=== PATIENT | female | born 1925 ===

== ENCOUNTER 2017-05-18 22:38 | Observation (INO) | payer OTHER ==
[2017-05-18 22:38] VITALS: BMI 23.4
--- NOTE | 2017-05-18 23:03 | ED PDOC ---
Arrival/HPI - General Time Seen by Provider: 05/18/17 22:48 Historian: Patient - History of Present Illness Narrative History of Present Illness (Text): 05/18/17 23:00 Ewa Escobar is an 89 year old female, whose past medical history includes hiatal hernia, CHF, hypertension, heart valve replacement, gastritis, and anemia, who presents to the Emergency department accompanied by daughter complaining of generalized weakness today. Daughter states patient has been experiencing generalized weakness with vague abdominal discomfort, shortness of breath, and possible episode of vomiting and diarrhea. Daughter also reports patient has decreased appetite. Patient on morphine patch for chronic back pain. Patient denies any fever, chills, chest pain, urinary symptoms, back pain , neck pain, headache, dizziness, or any other complaints. Time/Duration: Other (today) Symptom Onset: Gradual Symptom Course: Unchanged Activities at Onset: Light Context: Home Past Medical History - Provider Review Nursing Documentation Reviewed: Yes - Infectious Disease Hx of Infectious Diseases: None - Tetanus Immunization Tetanus Immunization: Unknown - Cardiac Hx Cardiac Disorders: Yes Hx Congestive Heart Failure: Yes Hx Hypertension: Yes - Pulmonary Hx Respiratory Disorders: No - Neurological Other/Comment: The patient has a history of facial asymmetry due to chronic pain on the right side which she takes Lyrica. - HEENT Hx HEENT Disorder: Yes (damaged retina, patient needs surgery) - Renal Hx Renal Disorder: No - Endocrine/Metabolic Hx Endocrine Disorders: No - Hematological/Oncological Hx Blood Disorders: Yes Hx Anemia: Yes (blood transfusion) - Integumentary Hx Dermatological Disorder: Yes (superficial skin cancer to face) - Musculoskeletal/Rheumatological Hx Musculoskeletal Disorders: No Hx Falls: No - Gastrointestinal Hx Gastrointestinal Disorders: No - Genitourinary/Gynecological Hx Genitourinary Disorders: Yes (urinary frequency) - Psychiatric Hx Psychophysiologic Disorder: Yes Hx Anxiety: Yes Hx Depression: Yes Hx Emotional Abuse: No Hx Physical Abuse: No Hx Substance Use: No - Past Surgical History Past Surgical History: No Previous - Surgical History Hx Valve Replacement: Yes - Anesthesia Hx Anesthesia: Yes Hx Anesthesia Reactions: No Hx Malignant Hyperthermia: No - Suicidal Assessment Feels Threatened In Home Enviroment: No Family/Social History - Physician Review Nursing Documentation Reviewed: Yes Family/Social History: Unknown Family HX Smoking Status: Never Smoked Hx Alcohol Use: No Hx Substance Use: No Hx Substance Use Treatment: No Allergies/Home Meds Allergies/Adverse Reactions: Allergies No Known Allergies Allergy (Verified 05/18/17 23:32) Home Medications: Home Meds Medication Instructions Recorded Confirmed Clopidogrel [Plavix] 1 tab PO DAILY 08/19/15 11/21/15 Esomeprazole Magnesium [Nexium] 40 mg PO DAILY 08/19/15 11/21/15 Folic Acid 1 mg PO DAILY 11/21/15 11/21/15 Diltiazem HCl [Diltiazem ER] 10/07/16 Review of Systems - Physician Review All systems were reviewed & negative as marked: Yes - Review of Systems Constitutional: Other (+generalized weakness) Eyes: Normal ENT: Normal Respiratory: SOB Cardiovascular: Normal Gastrointestinal: Abdominal Pain (+vague abdominal pain), Diarrhea, Vomiting, Appetite Changes (+decreased appetite) Genitourinary Female: Normal. absent: Dysuria, Frequency, Hematuria, Urine Output Changes Musculoskeletal: Other (+body aches). absent: Back Pain, Neck Pain Skin: Normal. absent: Rash Neurological: Normal Endocrine: Normal Hemo/Lymphatic: Normal Psychiatric: Normal Physical Exam Vital Signs Reviewed: Yes Vital Signs Temp Pulse Resp BP Pulse Ox 05/19/17 01:39 65 18 155/74 H 100 05/19/17 01:38 155/74 H 05/19/17 00:42 66 18 147/78 100 05/18/17 23:45 18 99 05/18/17 23:33 99.2 F 70 18 148/75 100 Temperature: Afebrile Blood Pressure: Normal Pulse: Regular Respiratory Rate: Normal Appearance: Positive for: Well-Appearing, Non-Toxic, Comfortable Pain Distress: None Mental Status: Positive for: Alert and Oriented X 3 - Systems Exam Head: Present: Atraumatic, Normocephalic Pupils: Present: PERRL Extroacular Muscles: Present: EOMI Conjunctiva: Present: Normal Mouth: Present: Moist Mucous Membranes Neck: Present: Normal Range of Motion Respiratory/Chest: Present: Clear to Auscultation, Good Air Exchange. No: Respiratory Distress, Accessory Muscle Use Cardiovascular: Present: Regular Rate and Rhythm, Normal S1, S2. No: Murmurs Abdomen: Present: Tenderness (Minimal epigastric tenderness), Normal Bowel Sounds. No: Distention, Peritoneal Signs Back: Present: Normal Inspection Upper Extremity: Present: Normal Inspection. No: Cyanosis, Edema Lower Extremity: Present: Normal Inspection. No: Edema Neurological: Present: GCS=15, CN II-XII Intact, Speech Normal Skin: Present: Warm, Dry, Normal Color. No: Rashes Psychiatric: Present: Alert, Oriented x 3, Normal Insight, Normal Concentration Medical Decision Making ED Course and Treatment: 05/18/17 23:00 Impression: 89 year old female presents for generalized weakness, abdominal discomfort, shortness of breath, and possible vomiting/diarrhea. Plan: -- CT Abdomen and Pelvis w/o contrast -- EKG -- Chest X-ray -- Labs, cardiac enzymes, BNP, lipase -- Reassess and disposition Prior Visits: Notes and results from previous visits were reviewed. On 10/07/2016, pt was seen in the Emergency department for lower back pain. Pt was d/c home. Progress Notes: Reviewed EKG, NSR at [address]pm[address] LVH. Non-specific ST/T wave changes. 05/19/17 00:54 Reviewed radiology, CT Abdomen and Pelvis shows: Lower thorax: Trace bilateral pleural effusions, with adjacent compressive atelectasis. ABDOMEN: Liver: No acute findings Gallbladder and bile ducts: The gallbladder is distended, without calcified stones. No intraextrahepatic biliary ductal dilation. Pancreas: Limited evaluation secondary to the lack of intravenous contrast. Spleen: No acute findings. Adrenals: No acute findings. Kidneys and ureters: No obstructing stones. No hydronephrosis. Stable bilateral foci of decreased attenuation, statistically cysts. PELVIS: Bladder: No acute findings. Reproductive: A 3.8 cm focus of decreased attenuation is identified within the left adnexa, most consistent with a left ovarian cyst. Appendix: The appendix is of normal caliber (series 2, image 109) ABDOMEN and PELVIS: Stomach and bowel: No acute findings. Peritoneum: No acute findings. Lymph nodes: Limited evaluation without intravenous contrast. Vasculature: Calcified atherosclerotic disease. Bones: Diffuse bony demineralization, without acute fracture. IMPRESSION: 3.8 cm left adnexal cyst, an interval change from previous examination. 05/19/17 01:[address] Garcia, lead medical technologist data processing consultant, who is aware and agrees with plan. Case discussed with Dr. Wise, who is aware and agrees with plan. Accepts pt in to hospitalist service. Pt will go to Telemetry observation for CHF. - Lab Interpretations Lab Results: 05/18/17 23:50 05/18/17 23:50 Lab Results 05/18/17 23:50: WBC 6.6, RBC 3.52, Hgb 10.0 L, Hct 30.6 L, MCV 86.9, MCH 28.4, MCHC 32.7, RDW 14.7 H, Plt Count 216, MPV 9.5 05/18/17 23:50: Sodium 137, Potassium 4.0, Chloride 102, Carbon Dioxide 27, Anion Gap 12, BUN 18, Creatinine 0.9, Est GFR ( Amer) > 60, Est GFR (Non- Af Amer) 59, Random Glucose 134 H, Calcium 8.5, Total Bilirubin 0.4, AST 41 H, ALT 25, Alkaline Phosphatase 98, Lactate Dehydrogenase 525, Total Creatine Kinase 60, Troponin I 0.03 D, NT-Pro-B Natriuret Pep 760 H, Total Protein 7.1, Albumin 3.7, Globulin 3.5, Albumin/Globulin Ratio 1.1, Lipase 43 05/18/17 23:50: PT 11.5, INR 1.06, APTT 27.5 I have reviewed the lab results: Yes - RAD Interpretation Radiology Orders: 05/18/17 23:10 CHEST PORTABLE [RAD] Stat 05/18/17 23:11 ABD & PELVIS W/O PO OR IV CONT [CT] Stat - EKG Interpretation Interpreted by ED Physician: Yes Type: 12 lead EKG - Medication Orders Current Medication Orders: Discontinued Medications Furosemide (Lasix) 40 mg IVP ONCE ONE Stop: 05/19/17 01:02 Last Admin: 05/19/17 01:38 Dose: 40 mg MAR Blood Pressure Document 05/19/17 01:38 JOSE (Rec: 05/19/17 01:38 [facility] [id number]) Blood Pressure Blood Pressure (100/60-150/90 mm Hg) 155/74 IVP Administration Document 05/19/17 01:38 JOSE (Rec: 05/19/17 01:38 [facility] [id number]) Charges for Administration # of IVP Administrations 1 - Scribe Statement The provider has reviewed the documentation as recorded by the Scribe Moira Mujica All medical record entries made by the Scribe were at my direction and personally dictated by me. I have reviewed the chart and agree that the record accurately reflects my personal performance of the history, physical exam, medical decision making, and the department course for this patient. I have also personally directed, reviewed, and agree with the discharge instructions and disposition. Disposition/Present on Arrival - Present on Arrival Any Indicators Present on Arrival: No History of DVT/PE: No History of Uncontrolled Diabetes: No Urinary Catheter: No History of Decub. Ulcer: No History Surgical Site Infection Following: None - Disposition Have Diagnosis and Disposition been Completed?: Yes Diagnosis: Congestive heart failure Disposition: HOSPITALIZED Disposition Time: 01:18 Patient Plan: Observation Patient Problems: Current Active Problems Problem Status Onset Congestive heart failure Acute Condition: STABLE
[2017-05-19 00:10] LABS: INR 1.06 (0.93-1.08); PARTIAL THROMBOPLASTIN TIME 27.5 Seconds (23.7-30.8)
[2017-05-19 00:12] LABS: HEMATOCRIT 30.6 % (36.0-48.0); MEAN CELL VOLUME 86.9 fl (80.0-105.0); MEAN CORPUSCULAR HEMOGLOBIN 28.4 pg (25.0-35.0); MEAN CORPUSCULAR HGB CONC 32.7 g/dl (31.0-37.0); MEAN PLATELET VOLUME 9.5 fl (7.0-11.0); RED CELL DISTRIBUTION WIDTH 14.7 % (11.5-14.5); WHITE BLOOD COUNT 6.6 10^3/ul (4.5-11.0)
[2017-05-19 00:13] LABS: ALB/GLOB RATIO 1.1 (1.1-1.8); ALKALINE PHOSPHATASE 98 U/L (38-126); ALT/SGPT 25 U/L (7-56); AST/SGOT 41 U/L (14-36); BILIRUBIN,TOTAL 0.4 mg/dL (0.2-1.3); BLOOD UREA NITROGEN 18 mg/dL (7-21); CALCIUM 8.5 mg/dL (8.4-10.5); CARBON DIOXIDE 27 mmol/L (21-33); CHLORIDE 102 mmol/L (98-107); GFR AFRICAN-AMERICAN > 60; GLUCOSE,RANDOM 134 mg/dL (70-110); LIPASE 43 U/L (23-300); SODIUM 137 mmol/L (132-148); TOTAL PROTEIN 7.1 g/dL (5.8-8.3)
[2017-05-19 00:27] LABS: TROPONIN I 0.03 ng/mL
--- NOTE | 2017-05-19 00:53 | CT ---
EXAM: CT Abdomen and Pelvis Without Intravenous Contrast CLINICAL HISTORY: 89 years old, female; Pain; Abdominal pain; Generalized TECHNIQUE: Axial computed tomography images of the abdomen and pelvis without intravenous contrast. All CT scans at this facility use one or more dose reduction techniques, viz.: automated exposure control; ma/kV adjustment per patient size (including targeted exams where dose is matched to indication; i.e. head); or iterative reconstruction technique. Coronal and sagittal reformatted images were created and reviewed. COMPARISON: CT - ABD PELVIS W/O PO OR IV CONT 11/21/2015 11:15:07 AM FINDINGS: Lower thorax: Trace bilateral pleural effusions, with adjacent compressive atelectasis. ABDOMEN: Liver: No acute findings Gallbladder and bile ducts: The gallbladder is distended, without calcified stones. No intra-extrahepatic biliary ductal dilation. Pancreas: Limited evaluation secondary to the lack of intravenous contrast. Spleen: No acute findings. Adrenals: No acute findings. Kidneys and ureters: No obstructing stones. No hydronephrosis. Stable bilateral foci of decreased attenuation, statistically cysts. PELVIS: Bladder: No acute findings. Reproductive: A 3.8 cm focus of decreased attenuation is identified within the left adnexa, most consistent with a left ovarian cyst. Appendix: The appendix is of normal caliber (series 2, image 109) ABDOMEN and PELVIS: Stomach and bowel: No acute findings. Peritoneum: No acute findings. Lymph nodes: Limited evaluation without intravenous contrast. Vasculature: Calcified atherosclerotic disease. Bones: Diffuse bony demineralization, without acute fracture. IMPRESSION: 3.8 cm left adnexal cyst, an interval change from previous examination.
--- NOTE | 2017-05-19 02:15 | CP.PCM.HP ---
<Ti Mann - Last Filed: 05/19/17 20:14> History of Present Illness - History of Present Illness History of Present Illness: 89 year old female, whose past medical history includes HTN, Aortic heart valve replacement, chronic back pain, gastritis, and anemia, presents complaining of generalized weakness and abdominal pain which is diffuse and SOB. The patient states she has had the abdominal pain for several days. Her daughter is bedside and history is obtained through her. Daughter states the patient ate an egg omelette today then went to bed around 10 pm. The patient then woke up and told her daughter she was having issues breathing and felt short of breath. The daughter states her mother has been eating less recently and has not been herself since returning from a trip to [place] a month ago. While in [place], her mother was given pain patches for back pain. Patient has morphine patch for chronic back pain. Patient denies any chest pain, fever, chills, urinary symptoms, back pain, neck pain, headache, dizziness, or any other complaints. PMH: HTN, Aortic heart valve replacement, gastritis, chronic back pain and anemia, EF of 56 (October 2015) PSH: Aortic Valve replacement 3 years ago Allergies: NKDA Social: lives with daughter, denies tobacco, alcohol, or drug use Family Hx: none significant Medications: Nexium, Diltiazem, Clopidogrel, Folic acid, B12, benadryl Present on Admission - Present on Admission Any Indicators Present on Admission: No Review of Systems - Constitutional Constitutional: absent: Headache - EENT Eyes: absent: Change in Vision Ears: Ear Pain - Cardiovascular Cardiovascular: Dyspnea. absent: Chest Pain - Respiratory Respiratory: Dyspnea. absent: Cough - Gastrointestinal Gastrointestinal: Abdominal Pain. absent: Diarrhea, Nausea, Vomiting - Musculoskeletal Musculoskeletal: Back Pain - Neurological Neurological: absent: Abnormal Hearing Past Patient History - Infectious Disease Hx of Infectious Diseases: None - Tetanus Immunizations Tetanus Immunization: Unknown - Past Social History Smoking Status: Never Smoked - CARDIAC Hx Cardiac Disorders: Yes Hx Congestive Heart Failure: Yes Hx Hypertension: Yes - PULMONARY Hx Respiratory Disorders: No - NEUROLOGICAL Other/Comment: The patient has a history of facial asymmetry due to chronic pain on the right side which she takes Lyrica. - HEENT Hx HEENT Problems: Yes (damaged retina, patient needs surgery) - RENAL Hx Chronic Kidney Disease: No - ENDOCRINE/METABOLIC Hx Endocrine Disorders: No - HEMATOLOGICAL/ONCOLOGICAL Hx Blood Disorders: Yes Hx Anemia: Yes (blood transfusion) - INTEGUMENTARY Hx Dermatological Problems: Yes (superficial skin cancer to face) - MUSCULOSKELETAL/RHEUMATOLOGICAL Hx Musculoskeletal Disorders: No Hx Falls: No - GASTROINTESTINAL Hx Gastrointestinal Disorders: No - GENITOURINARY/GYNECOLOGICAL Hx Genitourinary Disorders: Yes (urinary frequency) - PSYCHIATRIC Hx Psychophysiologic Disorder: Yes Hx Anxiety: Yes Hx Depression: Yes Hx Emotional Abuse: No Hx Physical Abuse: No Hx Substance Use: No - SURGICAL HISTORY Hx Valve Replacement: Yes - ANESTHESIA Hx Anesthesia: Yes Hx Anesthesia Reactions: No Hx Malignant Hyperthermia: No Meds Allergies/Adverse Reactions: Allergies Allergy/AdvReac Type Severity Reaction Status Date / Time No Known Allergies Allergy Verified 05/18/17 23:32 Physical Exam - Constitutional Additional comments: Fatigued, tired - Head Exam Head Exam: ATRAUMATIC, NORMAL INSPECTION, NORMOCEPHALIC - Eye Exam Eye Exam: Normal appearance - Respiratory Exam Respiratory Exam: Clear to Auscultation Bilateral, NORMAL BREATHING PATTERN - Cardiovascular Exam Cardiovascular Exam: REGULAR RHYTHM, +S1, +S2, Systolic Murmur - GI/Abdominal Exam GI & Abdominal Exam: Normal Bowel Sounds, Tenderness. absent: Distended - Back Exam Back exam: rash noted - Neurological Exam Neurological exam: Alert, Oriented x3 Results - Vital Signs Recent Vital Signs: Last Vital Signs Temp 99.2 F 05/18/17 23:33 Pulse 65 05/19/17 01:39 Resp 18 05/19/17 01:39 BP 155/74 H 05/19/17 01:39 Pulse Ox 100 05/19/17 01:39 - Labs Result Diagrams: 05/19/17 06:30 05/19/17 06:30 Assessment & Plan - Assessment and Plan (Free Text) Assessment: 89 year old female, whose past medical history includes HTN, Aortic heart valve replacement, chronic back pain, gastritis, and anemia, presents complaining of generalized weakness and abdominal pain which is diffuse and SOB. The patient states she has had the abdominal pain for several days. She is being worked up for SOB and abdominal pain. Plan: 1. SOB Rule out ACS - EKG ordered and obtained non specific ST changes, serial EKGs ordered, pending official review - Troponins 0.03, serial ordered - Echo ordered - Cardiology Consulted 2. Abdominal Pain secondary to possible gastritis - Abd/ Pelvic CT ordered and obtained, thorax shows bilateral pleural effusions with compressive atelectasis and 3.8cm left adnexal cyst - Tylenol given - Stool occult blood test ordered 3. Weakness, secondary to anemia - Hg 10, monitor - Anemia workup ordered - repeat labs 4. HTN -continue home meds 5. GI/DVT Prophylaxis <Mihir Wise - Last Filed: 05/21/17 20:50> Results - Vital Signs Recent Vital Signs: Last Vital Signs Temp 97.8 F 05/20/17 05:35 Pulse 54 L 05/20/17 11:41 Resp 20 05/20/17 05:35 BP 129/60 05/20/17 09:47 Pulse Ox 97 05/20/17 05:35 - Labs Result Diagrams: 05/20/17 06:17 05/20/17 06:17 Attending/Attestation - Attestation I have personally seen and examined this patient.: Yes I have fully participated in the care of the patient.: Yes I have reviewed all pertinent clinical information: Yes Notes (Text): 05/21/17 20:50 Agree with history, physical examination, assessment and plan.
[2017-05-19 06:08] VITALS: O2SAT 97
[2017-05-19] MEDS: Pantoprazole 40 mg EC Tab PO SCH (06:08)
[2017-05-19 07:05] LABS: BASO # 0.01 K/mm3 (0.0-2.0); BASO % 0.1 % (0.0-3.0); EOS % 0.5 % (1.5-5.0); GRAN # 5.24 (1.4-6.5); GRAN % 70.4 % (50.0-68.0); HEMATOCRIT 32.9 % (36.0-48.0); LYMPH # 1.5 (1.2-3.4); MEAN CELL VOLUME 86.6 fl (80.0-105.0); MEAN CORPUSCULAR HEMOGLOBIN 28.2 pg (25.0-35.0); MEAN CORPUSCULAR HGB CONC 32.5 g/dl (31.0-37.0); MEAN PLATELET VOLUME 9.6 fl (7.0-11.0); MONO # 0.7 (0.1-0.6); WHITE BLOOD COUNT 7.5 10^3/ul (4.5-11.0)
[2017-05-19 07:15] LABS: IRON 21 ug/dL (45-180)
[2017-05-19 07:20] LABS: ALB/GLOB RATIO 1.1 (1.1-1.8); ALKALINE PHOSPHATASE 101 U/L (38-126); ALT/SGPT 28 U/L (7-56); AST/SGOT 42 U/L (14-36); BILIRUBIN,TOTAL 0.5 mg/dL (0.2-1.3); BLOOD UREA NITROGEN 18 mg/dL (7-21); CALCIUM 8.8 mg/dL (8.4-10.5); CARBON DIOXIDE 30 mmol/L (21-33); CHLORIDE 99 mmol/L (98-107); GFR AFRICAN-AMERICAN > 60; GLUCOSE,RANDOM 102 mg/dL (70-110); POTASSIUM 3.8 mmol/L (3.6-5.0); SODIUM 140 mmol/L (132-148); TOTAL PROTEIN 7.6 g/dL (5.8-8.3); TROPONIN I 0.02 ng/mL
[2017-05-19] MEDS: diltiaZEM 180 mg/24 Hours CD Cap PO SCH (10:41)
[2017-05-19 13:19] LABS: FOLATE > 20.0 ng/mL
--- NOTE | 2017-05-19 13:30 | RAD ---
HISTORY: sob COMPARISON: 11/21/2015 FINDINGS: LUNGS: No active pulmonary disease. PLEURA: No significant pleural effusion identified, no pneumothorax apparent. CARDIOVASCULAR: Cardiomegaly-similar OSSEOUS STRUCTURES: No significant abnormalities. VISUALIZED UPPER ABDOMEN: Normal. OTHER FINDINGS: Hiatal hernia likely -similar IMPRESSION: No active disease. No interval pathology noted
--- NOTE | 2017-05-19 22:24 | CARD ---
APPROVED REPORT EXAM: Two-dimensional and M-mode echocardiogram with Doppler and color Doppler. INDICATION Dyspnea 2D DIMENSIONS Left Atrium (2D)4.9 (1.6-4.0cm)IVSd1.6 (0.7-1.1cm) LVDd4.1 (3.9-5.9cm)PWd1.5 (0.7-1.1cm) LVDs3.0 (2.5-4.0cm)FS (%) 26.8 % LVEF (%)52.8 (>50%) M-Mode DIMENSIONS Aortic Root1.80 (2.2-3.7cm)Aortic Cusp Exc.0.60 (1.5-2.0cm) Aortic Valve AoV Peak Bbpppxup609.0cm/sAoV VTI57.1cmAO Peak GR.36mmHg LVOT Peak Jqvfosae72.0cm/sLVOT VTI16.40cmAO Mean GR.16mmHg Mitral Valve E/A ratio0.0 TDI E/Lateral E'0.0E/Medial E'0.0 Tricuspid Valve TR Peak [id number] [id number] Peak Gr.39mmHg [id number] LEFT VENTRICLE The left ventricle is normal size. There is moderate concentric left ventricular hypertrophy. The left ventricular function is normal. The left ventricular ejection fraction is within the normal range. There is normal LV segmental wall motion. Transmitral Doppler flow pattern is Grade I-abnormal relaxation pattern. RIGHT VENTRICLE The right ventricle is normal size. There is normal right ventricular wall thickness. The right ventricular systolic function is normal. ATRIA The left atrium is moderately dilated. The right atrium is mildly dilated. AORTIC VALVE S/P TAVR with a mean systolic gradient of 16 mmHg No aortic regurgitation is present. MITRAL VALVE Mitral annular calcification is moderate. Mitral regurgitation is mild. TRICUSPID VALVE There is mild tricuspid regurgitation. There is mild to moderate pulmonary hypertension. GREAT VESSELS The IVC is normal in size and collapses >50% with inspiration. PERICARDIAL EFFUSION There is no pericardial effusion. <Conclusion> S/P TAVR with a mean systolic gradient of 16 mmHg The left ventricle is normal size. There is moderate concentric left ventricular hypertrophy. The left ventricular function is normal. The left ventricular ejection fraction is within the normal range. There is normal LV segmental wall motion. Transmitral Doppler flow pattern is Grade I-abnormal relaxation pattern. Mitral regurgitation is mild. There is mild tricuspid regurgitation. There is mild to moderate pulmonary hypertension.
--- NOTE | 2017-05-19 23:08 | CARD ---
APPROVED REPORT EKG Measurement Heart [id number] HI 200P72 [id number] <Conclusion> Normal sinus rhythm Left ventricular hypertrophy with repolarization abnormality Abnormal ECG
--- NOTE | 2017-05-19 23:11 | CON ---
CARDIOLOGY CONSULTATION REASON FOR CONSULTATION: Shortness of breath as well as abdominal pain. HISTORY OF PRESENT ILLNESS: The patient is an 89-year-old female, who is originally from [facility], who currently lives with her daughter in [place] for the past 7 years, has a history of TAVR; the patient does not recall when and where she had it done. She was brought in because of generalized weakness, shortness of breath and abdominal discomfort. The patient denies any chest pain at this time. The patient is unaware of any history of heart attack in the past. SOCIAL HISTORY: Nonsmoker, nondrinker. MEDICATIONS: Cardizem 180 mg once a day, clonidine 0.1 mg t.i.d., heparin 5000 units subcutaneous twice a day, Lasix 20 mg intravenously daily, Plavix 75 mg once a day, Valium 5 mg p.o. twice a day p.r.n. PHYSICAL EXAMINATION GENERAL: The patient is an elderly female who does not appear to be in acute distress at this time. VITAL SIGNS: Blood pressure 135/50, heart rate 69, temperature 98.2, respiration 19. HEENT: Pale conjunctivae. CHEST: Clear. HEART: S1 and S2 regular. Grade 2/6 ejection systolic murmur over left sternal border. ABDOMEN: Soft. EXTREMITIES: No edema. LABORATORY DATA: The SMA-7 is entirely within normal limit. Troponin is 0.03, 0.02. INR is 1.06. PTT is within normal limit. Hemoglobin and hematocrit of 10.7 and 32.9, white count and platelet count are within normal limit. Abdomen and pelvic CT scan, 3.8 cm left adnexal cyst, an interval change from the previous examination. ASSESSMENT: 1. Weakness, shortness of breath as well as abdominal discomfort. The patient's EKG is consistent with left ventricular hypertrophy with repolarization changes. There are no recent ischemic changes on EKG. 2. Status post transcatheter aortic valve replacement. 3. Hypertension. 4. mild aortic stenosis. RECOMMENDATIONS: Continue current Cardizem, clonidine, subcutaneous heparin, intravenous Lasix and Plavix. I will review the electrocardiographic study performed today. Dao Rojas MD
--- NOTE | 2017-05-19 23:18 | CARD ---
APPROVED REPORT EKG Measurement Heart [id number] [place] [id number] <Conclusion> Normal sinus rhythm Left ventricular hypertrophy with repolarization abnormality Abnormal ECG
[2017-05-20 05:36] VITALS: RESP 20; TEMP 97.8
[2017-05-20] MEDS: Pantoprazole 40 mg EC Tab PO SCH (05:49)
[2017-05-20 06:25] LABS: BASO # 0.01 K/mm3 (0.0-2.0); BASO % 0.2 % (0.0-3.0); EOS # 0.1 (0.0-0.7); EOS % 2.1 % (1.5-5.0); GRAN # 3.17 (1.4-6.5); GRAN % 59.8 % (50.0-68.0); HEMATOCRIT 30.5 % (36.0-48.0); LYMPH # 1.3 (1.2-3.4); LYMPH % 25.1 % (22.0-35.0); MEAN CELL VOLUME 86.2 fl (80.0-105.0); MEAN CORPUSCULAR HGB CONC 32.5 g/dl (31.0-37.0); MEAN PLATELET VOLUME 9.3 fl (7.0-11.0); MONO # 0.7 (0.1-0.6); MONO % 12.8 % (1.0-6.0); RED CELL DISTRIBUTION WIDTH 14.8 % (11.5-14.5); WHITE BLOOD COUNT 5.3 10^3/ul (4.5-11.0)
[2017-05-20 06:34] LABS: ALB/GLOB RATIO 0.9 (1.1-1.8); ALKALINE PHOSPHATASE 85 U/L (38-126); ALT/SGPT 32 U/L (7-56); AST/SGOT 31 U/L (14-36); BILIRUBIN,TOTAL 0.4 mg/dL (0.2-1.3); BLOOD UREA NITROGEN 27 mg/dL (7-21); CALCIUM 8.7 mg/dL (8.4-10.5); CARBON DIOXIDE 29 mmol/L (21-33); CHLORIDE 98 mmol/L (95-110); GFR AFRICAN-AMERICAN > 60; GLUCOSE,RANDOM 95 mg/dL (70-110); POTASSIUM 4.1 mmol/L (3.6-5.0); SODIUM 137 mmol/L (132-148); TOTAL PROTEIN 7.1 g/dL (5.8-8.3)
[2017-05-20] MEDS: diltiaZEM 180 mg/24 Hours CD Cap PO SCH (09:47)
[2017-05-20 09:52] VITALS: BP 129/60
[2017-05-20 11:54] VITALS: PULSE 54
--- NOTE | 2017-05-21 01:11 | CP.PCM.DIS ---
Provider - Provider Date of Admission: 05/19/17 01:18 Attending physician: Sandra Sawyer MD Time Spent in preparation of Discharge (in minutes): 45 Hospital Course - Lab Results Lab Results: Most Recent Lab Values WBC 5.3 10^3/ul (4.5-11.0) D 05/20/17 06:17 RBC 3.54 10^6/uL (3.5-6.1) 05/20/17 06:17 Hgb 9.9 g/dL (12.0-16.0) L 05/20/17 06:17 Hct 30.5 % (36.0-48.0) L 05/20/17 06:17 MCV 86.2 fl (80.0-105.0) 05/20/17 06:17 MCH 28.0 pg (25.0-35.0) 05/20/17 06:17 MCHC 32.5 g/dl (31.0-37.0) 05/20/17 06:17 RDW 14.8 % (11.5-14.5) H 05/20/17 06:17 Plt Count 206 10^3/uL (120.0-450.0) 05/20/17 06:17 MPV 9.3 fl (7.0-11.0) 05/20/17 06:17 Gran % 59.8 % (50.0-68.0) 05/20/17 06:17 Lymph % (Auto) 25.1 % (22.0-35.0) 05/20/17 06:17 Henry % (Auto) 12.8 % (1.0-6.0) H 05/20/17 06:17 Eos % (Auto) 2.1 % (1.5-5.0) 05/20/17 06:17 Baso % (Auto) 0.2 % (0.0-3.0) 05/20/17 06:17 Gran # 3.17 (1.4-6.5) 05/20/17 06:17 Lymph # 1.3 (1.2-3.4) 05/20/17 06:17 Henry # 0.7 (0.1-0.6) H 05/20/17 06:17 Eos # 0.1 (0.0-0.7) 05/20/17 06:17 Baso # 0.01 K/mm3 (0.0-2.0) 05/20/17 06:17 PT 11.5 Seconds (9.9-11.8) 05/18/17 23:50 INR 1.06 (0.93-1.08) 05/18/17 23:50 APTT 27.5 Seconds (23.7-30.8) 05/18/17 23:50 Sodium 137 mmol/L (132-148) 05/20/17 06:17 Potassium 4.1 mmol/L (3.6-5.0) 05/20/17 06:17 Chloride 98 mmol/L (95-110) 05/20/17 06:17 Carbon Dioxide 29 mmol/L (21-33) 05/20/17 06:17 Anion Gap 14 (10-20) 05/20/17 06:17 BUN 27 mg/dL (7-21) H 05/20/17 06:17 Creatinine 1.0 mg/dL (0.5-1.4) 05/20/17 06:17 Est GFR ( Amer) > 60 05/20/17 06:17 Est GFR (Non-Af Amer) 52 05/20/17 06:17 Random Glucose 95 mg/dL (70-110) 05/20/17 06:17 Calcium 8.7 mg/dL (8.4-10.5) 05/20/17 06:17 Iron 21 ug/dL (45-180) L 05/19/17 06:30 TIBC 252 ug/dL (265-497) L 05/19/17 06:30 % Saturation 8 % (20-55) L 05/19/17 06:30 Ferritin 64.0 ng/mL 05/19/17 06:30 Total Bilirubin 0.4 mg/dL (0.2-1.3) 05/20/17 06:17 AST 31 U/L (14-36) 05/20/17 06:17 ALT 32 U/L (7-56) 05/20/17 06:17 Alkaline Phosphatase 85 U/L (38-126) 05/20/17 06:17 Lactate Dehydrogenase 525 U/L (333-699) 05/18/17 23:50 Total Creatine Kinase 60 U/L (35-230) 05/18/17 23:50 Troponin I 0.02 ng/mL 05/19/17 12:00 NT-Pro-B Natriuret Pep 760 pg/mL (0-450) H 05/18/17 23:50 Total Protein 7.1 g/dL (5.8-8.3) 05/20/17 06:17 Albumin 3.4 g/dL (3.0-4.8) 05/20/17 06:17 Globulin 3.7 gm/dL 05/20/17 06:17 Albumin/Globulin Ratio 0.9 (1.1-1.8) L 05/20/17 06:17 Lipase 43 U/L (23-300) 05/18/17 23:50 Vitamin B12 > 1000 pg/mL (239-931) H 05/19/17 06:30 Folate > 20.0 ng/mL 05/19/17 06:30 - Hospital Course Hospital Course: Ms. Leo is a 89 year old female, whose past medical history includes HTN, CHF , TAVR, chronic back pain, gastritis, and anemia, presents complaining of SOB, generalized weakness and mild epigastric abdominal pain. The patient states she has had the abdominal pain for several days. Her daughter is bedside and history is obtained through her. Daughter states the patient ate an egg omelette the day prior to ED visit, then went to bed around 10 pm. The patient then woke up and told her daughter she was having issues breathing and felt short of breath. The daughter states her mother has been eating less recently and has not been herself since returning from a trip to [facility] a month ago. 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 Daughter also states that the mother was prescribed Lasix in the past but stopped using it because it made her urinate a lot at night. EKG showed nonspecific changes, Trop I were negative x3, and BNP was elevated. CXR was normal. CT Abd/pelvis was positive for trace b/l pleural effusions and 3.8cm L adnexal cyst. The patient was given 40mg IVP Lasix in the ED, and felt better. She was transferred to the telemetry unit for monitoring. On the floors, the patient had improved and was offering no complaints. Cardiology was consulted and made their recommendations. Echo was ordered and showed s/p TAVR, moderate concentric LVH and EF 52%. PT eval was also placed. On morning of d/c, the patient offered no complaints, and was feeling much better. the pt's daughter was present and it was discussed with her to follow up with PMD Dr. Lupillo Mckeon, and to continue to f/u at [facility] for her TAVR and to try and wean her off her pain patches if they're not needed. Pt prescribed Lasix 40mg PO to take daily to decrease her sob. PT was shown stretching exercises, and a main entree cook and cashier referral was placed for lifestyle modifications. - Date & Time of H&P Date of H&P: 05/19/17 Time of H&P: 02:05 Discharge Exam - Head Exam Head Exam: ATRAUMATIC, NORMAL INSPECTION, NORMOCEPHALIC - Eye Exam Eye Exam: EOMI, Normal appearance, PERRL Pupil Exam: NORMAL ACCOMODATION - ENT Exam ENT Exam: Mucous Membranes Moist - Neck Exam Neck exam: Normal Inspection - Respiratory Exam Respiratory Exam: Clear to PA & Lateral, NORMAL BREATHING PATTERN, UNREMARKABLE. absent: Accessory Muscle Use, Rales - Cardiovascular Exam Cardiovascular Exam: RRR, +S1, +S2 - GI/Abdominal Exam GI & Abdominal Exam: Normal Bowel Sounds, Soft. absent: Distended, Tenderness - Extremities Exam Extremities exam: normal inspection Additional comments: no pedal edema - Back Exam Back exam: NORMAL INSPECTION. absent: CVA tenderness (L), CVA tenderness (R) - Neurological Exam Neurological exam: Alert, Normal Gait, Oriented x3 - Psychiatric Exam Psychiatric exam: Normal Affect, Normal Mood - Skin Skin Exam: Normal Color, Warm Discharge Plan - Discharge Medications Prescriptions: Furosemide [Lasix] 40 mg PO DAILY #30 tab - Follow Up Plan Condition: STABLE Disposition: HOME/ ROUTINE Instructions: Weakness (GEN), Anemia (DC) Additional Instructions: Please follow up with your primary medical doctor as planned. Take Lasix 40 mg once day, preferably in the morning to help with the shortness of breath. Stretching and strengthening exercises as demonstrated by physical therapists. Continue taking the rest of your medications as prescribed. Discontinue the pain meds, conservative management of the pain advised. Go to the nearest emergency room if you experience chest pain, fever or chills and/or worsening of the shortness of breath. Referrals: [facility] [place]] [facility] Profile Req, [Non-Staff] - Toney Easley MD [Staff Provider] -
== END 2017-05-20 12:31 | disposition home or self-care (01) ==
LOC: ED 22:38 → ERH 05-19 01:18 → 2RNO 05-19 02:57
PROVIDERS: ADMIT Internal Medicine; ATTEND Internal Medicine
DX: D64.9 Anemia, unspecified (principal); R53.1 Weakness; I11.0 Hypertensive heart disease with heart failure; G89.29 Other chronic pain; M54.9 Dorsalgia, unspecified; K29.70 Gastritis, unspecified, without bleeding; R06.02 Shortness of breath; I35.0 Nonrheumatic aortic (valve) stenosis; Z95.2 Presence of prosthetic heart valve
CPT/HCPCS: 36415; 71010; 74176; 80053; 82550; 82607; 82728; 82746; 83540; 83550; 83615; 83690; 83880; 84484; 85025; 85027; 85610; 85730; 93005; 93306; 96374; 97116; 97161; 99285; G0378; G8978; G8979; J1644; J1940